=== PATIENT | male | born 1970 | race Caucasian/White ===

== ENCOUNTER 2022-10-09 14:07 | Outpatient (CLI) | payer BC, SELFPAY ==
[2022-10-09 14:29] LABS: Albumin* 4.3 g/dL (3.3-5.0); Chloride* 106 mmol/L (96-114)
[2022-10-09 14:30] LABS: Potassium* 4.5 mmol/L (3.6-5.1); Sodium* 139 mmol/L (135-149)
[2022-10-09 14:32] LABS: Alanine Aminotransferase* 21 U/L (4-50); Alkaline Phosphatase* 67 U/L (40-150); Aspartate Amino Transferase* 21 U/L (12-35); Bilirubin Total* 0.6 mg/dL (0.1-1.5); Blood Urea Nitrogen* 9 mg/dL (7-30); Carbon Dioxide* 28 mmol/L (20-32); Cholesterol* 139 mg/dL (90-199); Estimated Glomerular Filt Rate 91 ml/min; Glucose* 103 mg/dL (60-115); Total Protein* 6.6 g/dL (6.0-8.3); Triglycerides* 108 mg/dL (40-149)
[2022-10-09 14:33] LABS: Calcium* 8.8 mg/dL (8.4-10.6); HDL Cholesterol* 66 mg/dL (>=40); LDL Cholesterol Calculated 51 mg/dL (<100)
[2022-10-09 15:06] LABS: PSA Screen* 0.47 ng/mL (0.10-4.00)
== END 2022-10-09 14:08 | disposition home or self-care (01) ==
PROVIDERS: PCP Family Medicine; Visit Provider Family Medicine
DX: Z00.00 Encounter for general adult medical examination without abnormal findings (principal); E78.00 Pure hypercholesterolemia, unspecified; E66.9 Obesity, unspecified; Z12.5 Encounter for screening for malignant neoplasm of prostate
CPT/HCPCS: 80053; 80061; 84153

== ENCOUNTER 2023-06-21 08:19 | Outpatient (CLI) | payer BC, SELFPAY | END 2023-06-21 08:20 | disposition home or self-care (01) | LOC: NFLDREF 06-23 17:23 | PROVIDERS: PCP Family Medicine; Referring Provider Family Medicine; Visit Provider Family Medicine | DX: Z00.00 Encounter for general adult medical examination without abnormal findings (principal); E78.00 Pure hypercholesterolemia, unspecified; I10 Essential (primary) hypertension; E66.9 Obesity, unspecified; Z12.5 Encounter for screening for malignant neoplasm of prostate | CPT/HCPCS: 80053; 80061; 84153 ==

== ENCOUNTER 2024-06-23 08:04 | Outpatient (CLI) | payer BC, SELFPAY | END 2024-06-23 08:05 | disposition home or self-care (01) | LOC: NFLDREF 06-24 11:12 | PROVIDERS: PCP Family Medicine; Referring Provider Family Medicine; Visit Provider Family Medicine | DX: Z00.00 Encounter for general adult medical examination without abnormal findings (principal); E78.00 Pure hypercholesterolemia, unspecified; E66.9 Obesity, unspecified; Z12.5 Encounter for screening for malignant neoplasm of prostate | CPT/HCPCS: 80053; 80061; G0103 ==

== ENCOUNTER 2025-06-29 08:29 | Outpatient (CLI) | payer BC, SELFPAY | END 2025-06-29 08:30 | disposition home or self-care (01) | LOC: NFLDREF 07-02 18:24 | PROVIDERS: PCP Family Medicine; Referring Provider Family Medicine; Visit Provider Family Medicine | DX: Z00.00 Encounter for general adult medical examination without abnormal findings (principal); E78.00 Pure hypercholesterolemia, unspecified; Z12.5 Encounter for screening for malignant neoplasm of prostate | CPT/HCPCS: 80053; 80061; G0103 ==

== ENCOUNTER 2025-07-01 09:11 | Outpatient (CLI) | payer BC, SELFPAY | END 2025-07-01 09:12 | disposition home or self-care (01) | LOC: LKVREF 09:13 | PROVIDERS: PCP Family Medicine; Visit Provider Family Medicine | DX: D64.9 Anemia, unspecified (principal) | CPT/HCPCS: 84443 ==